=== PATIENT | male | born 1970 | race Asian ===

== ENCOUNTER 2017-07-04 12:00 | Day surgery (SDC) | payer MEDICARE, MEDICAID, SELFPAY ==
[2017-07-04] VITALS (10 sets, daily range): BP systolic 144–172; BP diastolic 100–130; PULSE 57–72; RESP 16–18; TEMP 36.3–36.8; O2SAT 96–100; BMI 31.2
[2017-07-04 12:32] LABS: Hematocrit 35.3 % (40-54); Hemoglobin 11.3 g/dl (13.0-16.5); Mean Corpuscular Hgb 31.3 pg (27.0-32.0); Mean Corpuscular Volume 97.8 fL (80-94); Platelet Count 291 K/mm3 (150-450); RBC Distribution Width CV 14.7 % (11.6-14.6); RBC Distribution Width SD 50.2 fl (35.1-43.9); Red Blood Count 3.61 M/mm3 (4.6-6.2); White Blood Count 5.1 K/mm3 (4.4-11.0)
[2017-07-04 12:33] LABS: Scan Indicated on CBC? Y/N NO
[2017-07-04 12:42] LABS: Anion Gap 9 (5-15); BUN 30 mg/dL (7-18); BUN/Creat Ratio 4.5 RATIO (10-20); Calcium,Total 8.8 mg/dL (8.5-10.1); Chloride 96 mmol/L (98-107); Creatinine, Serum 6.63 mg/dL (0.70-1.30); EST Glomerular Filtration Rate 10 mL/min (>60); Est Glom Filt Rate - Afr Amer 12 mL/min (>60); Estimated Creatinine Clearance 14.51 ml/min; Glucose 83 mg/dL (70-110); Potassium 4.1 mmol/L (3.5-5.1); Sodium Level 137 mmol/L (136-145)
--- NOTE | 2017-07-04 13:54 | PCM.DC.FIST ---
Discharge Diet: Renal Diet Discharge Activity: May Not Drive - for 2-3 days or while taking narcotic pain medications., May Not Shower, May Take a Tub Bath - in 5 days. Lifting Restrictions: 5 pounds Keep extremity elevated above heart level: - - Keep arm elevated above the heart level for 3 days. Additional Activity Instructions:: Exercise hand vigorously with a stress ball. Call your doctor if your incision/area has: Continuous Slow Oozing, Sudden Increased Bleeding - apply pressure and call your doctor., Increased Pain/ Swelling, Increased Redness, Foul Smelling Discharge Call your doctor if you observe: Fever of 101 or Higher Suture Line Care: Avoid Pulling/Pushing, Avoid Pinching/Bending Cleanse incision/area with: Keep Dressing Clean & Dry Additional Dressing/Incision Instructions:: May leave the dressing on for 3 days. Then leave the steri strips on for an additional week. Allergies/Adverse Reactions: Allergies No Known Allergies Allergy (Verified 07/01/17 12:51) Medications to take at Discharge Amlodipine [Norvasc] 10 mg PO DAILY 04/11/17 Atorvastatin Calcium [Lipitor] 40 mg PO DAILY 04/11/17 Calcium Acetate [Phoslo Gel Cap] 1,334 mg PO BID 04/11/17 Carvedilol [Coreg (Beta Francy)] 25 mg PO DAILY 04/11/17 Cholecalciferol (Vitamin D3) [Vitamin D3] 400 unit PO MOWEFR 04/11/17 Labetalol [Trandate (Beta Francy)] 200 mg PO BID 04/11/17 Mycophenolate Mofetil [Cellcept] 500 mg PO DAILY 04/11/17 [place]-3 Fatty Acids/Fish Oil [Fish Oil 1,000 mg Capsule] 1 ea PO DAILY 04/11/17 Valsartan [Diovan] 80 mg PO DAILY 04/11/17 Vert-Caps 1 cap PO DAILY 05/21/17 Primary Care Physician: [facility] ,Out of [Primary Care Provider] - Please Follow Up With: Giacomo Kang MD - [phone] When: Call to make an appointment for suture removal and follow up in 10 days.
[2017-07-04] MEDS: Bupivacaine Mpf 0.5% 30 ML VIAL (14:50)
--- NOTE | 2017-07-04 14:58 | PCM.OPRPT ---
Problem List (1) Chronic renal insufficiency, stage V Status: Acute Report of Operation Date of Procedure: 07/04/17 Pre-Operative Diagnosis: Stage V renal failure in need of arteriovenous access for hemodialysis Post-Operative Diagnosis: Same Surgery/Procedure Performed:: Left forearm radiocephalic arteriovenous fistula creation Description of Surgical Findings:: Timeout and informed consent was obtained. 47-year-old gentleman was taken to the operating room and placed upon the table. The left upper extremity was sterilely prepped and draped. He underwent monitored anesthesia care local anesthetic. 1% lidocaine mixed 50-50 with 0.5% Marcaine was used as local anesthetic. A total of 8 cc was used. Ultrasound had been performed preprocedure. At it point of vein bifurcation I then marked and then after instillation of local made a transverse oblique incision. Sharp blunt dissection was used to identify the cephalic vein was dissected free proximally and distally. Side branches secured with 4-0 Vicryl and hemoclips were indicated. Then sharp and blunt dissection was used to identify the radial artery. The radial artery was mobilized. The patient then received 10,000 units of heparin. The vein was ligated distally with hemoclips and then this was done at a branch point allowing for spatulation of that vein. Peripheral vascular clamps are placed on the radial artery and 11 blade used to make an arteriotomy and and this was extended with Burnette scissors. And this venous to arterial anastomosis created with a running 7-0 Prolene. Prior to completion there is good antegrade and retrograde flow. The anastomosis was completed. There was good positional lie of the vein albeit the vein being quite small in diameter. Hemostasis was nicely intact. The wound was closed with deep layer of interrupted 3-0 Vicryl and then once the particular 4-0 Monocryl. Steri-Strips Telfa OpSite dressings applied. Sponge instrument and needle counts were reported the surgeon to be correct. Blood loss was minimal. Hand was viable at the completion. He was taken to the recovery area in satisfactory condition. Specimens none. Drains none. Blood loss minimal. Giacomo Kang M.D., F.A.C.S. Type of Anesthesia:: Local MAC Anesthesiologist: Sacha Jay
--- NOTE | 2017-07-04 15:41 | NURSING ---
DR TORRES MADE AWARE OF PT'S ELEVATED BP, ORDERS GIVEN
== END 2017-07-04 16:58 | disposition home or self-care (01) ==
LOC: SDC 12:01 → AC 12:02
PROVIDERS: Anesthesiology; Visit Provider Surgery
PROC: (CPT 36820; principal; 2017-07-04 13:30)
DX: I12.0 Hypertensive chronic kidney disease with stage 5 chronic kidney disease or end stage renal disease (principal); N18.5 Chronic kidney disease, stage 5; E78.5 Hyperlipidemia, unspecified; Z99.2 Dependence on renal dialysis; Q63.9 Congenital malformation of kidney, unspecified
CPT/HCPCS: 36820; 36415; 80048; 85027